=== PATIENT | female | born 1985 | race Caucasian/White ===

== ENCOUNTER 2017-08-12 08:03 | Outpatient (CLI) | payer OTHER ==
--- NOTE | 2017-08-12 11:51 | RAD ---
SACROILIAC JOINT THREE VIEWS: HISTORY: Sacroiliitis. Bilateral SI joint pain. COMPARISON: None. FINDINGS: There are significant erosions. No significant sclerosis. The SI joints are unremarkable. There are small phleboliths in the pelvis. The pubic symphysis is unremarkable. No lumbosacral simons sitional vertebrae. IMPRESSION: Unremarkable exam of the sacroiliac joints. POS: [facility]
== END 2017-08-12 08:04 | disposition home or self-care (01) ==
LOC: MADRAD 08:03
PROVIDERS: ATTEND Internal Medicine
DX: M46.1 Sacroiliitis, not elsewhere classified (principal)
CPT/HCPCS: 72202

== ENCOUNTER 2018-12-01 11:56 | Outpatient (CLI) | payer OTHER ==
--- NOTE | 2018-12-01 12:28 | RAD ---
Radiograph right foot 3 views: HISTORY: 33-year-old female with nontraumatic right foot pain FINDINGS: No hallux valgus. Joint spaces are maintained without erosions or osteophytes. No periostitis. No per meative, osteolytic, or osteoblastic lesion. No fracture. IMPRESSION: Normal
== END 2018-12-01 11:57 | disposition home or self-care (01) ==
LOC: MADRAD 11:56
PROVIDERS: ATTEND Family Medicine
DX: M79.671 Pain in right foot (principal)